=== PATIENT | male | born 1965 | race Caucasian/White ===

== ENCOUNTER 2021-08-24 11:09 | Emergency (ER) | payer OTHER ==
[~2021-08-24] VITALS: Ht 172.7 cm; Wt 83.7 kg
[2021-08-24 11:18] VITALS: BP 168/122
[2021-08-24] MEDS ORDERED: CEPH500T PO (12:28)
[2021-08-24] MEDS ORDERED: TRAM50TA3 PO (12:28)
--- NOTE | 2021-08-24 12:28 | ED Upper Extremity ---
General Chief Complaint: Foreign Body Stated Complaint: RT FINGER FOREIGN OBJECT Nursing Triage Note: Patient c/o having a piece of wood under fingernail to Rt. middle finger. Pt. states this happened last night. Pt. states he was able to get some of the wood out, but states he can not get it all. Pt. states his tetanus is greater than 5 yrs. Patient's Rt. middle finger is swollen with no active drainage. Source: patient Exam Limitations: no limitations History of Present Illness Date Seen by Provider: Aug 24, 2021 Time Seen by Provider: 11:45 Initial Comments Patient is a 56-year-old right-handed male who presents with with sliver underneath his right finger nail with inflammation of his fingertip. Symptoms began yesterday after initial injury. Patient was able to remove part of the sliver. No other symptoms or complaints. Onset: yesterday Pain/Injury Location: right 3rd finger Method of Injury: other Modifying Factors: Improves With Other Allergies and Home Medications Patient Home Medication List Home Medication List Reviewed: Yes Review of Systems Constitutional: no symptoms reported, see HPI Musculoskeletal: see HPI Past Mxtxcqg-Apqwnc-Jjucbp Hx Immunizations Up To Date Influenza Vaccine Up-to-Date: No; Not Current Physical Exam Vital Signs Vital Signs - First Documented 08/24/21 11:18 Temp 36.7 Pulse 106 Resp 18 B/P (MAP) 168/122 (137) Capillary Refill : Height, Weight, BMI Height: '" Weight: lbs. oz. kg; 28.00 BMI Method: General Appearance: no apparent distress Skin: other (Visible splinter under right middle finger nailbed with inflammation and swelling of distal finger. No obvious cellulitis or purulent drainage) Procedures/Interventions I&D : I & D Procedure: betadine prep, sterile drapes applied Progress Right middle finger prepped with Betadine and injected with 1 mL of 1% lidocaine over lateral recess of right middle finger nailbed. Following which one quarter of the lateral nail was removed from the nailbed. The remaining wood splinter was identified and removed intact. The wound was then washed and bandaged. First dose of antibiotics was given. Explicit wound care, return precautions reviewed in detail. Patient verbalizes understanding agreement discharge instructions prior to departure. Tetanus updated. Progress/Results/Core Measures Results/Orders Vital Signs/I&O 08/24/21 11:18 Temp 36.7 Pulse 106 Resp 18 B/P (MAP) 168/122 (137) Blood Pressure Mean: 137 Departure Communication (Admissions) Successful removal of sliver from under right middle finger nailbed. Antibiotics given, tetanus updated. Wound care instructions reviewed. Impression Primary Impression: Foreign body of right middle finger Disposition: HOME, SELF-CARE Condition: Stable Departure-Patient Inst. Decision time for Depature: 12:27 Referrals: NO,LOCAL PHYSICIAN (PCP/Family) Primary Care Physician Patient Instructions: Foreign Body in Skin (DC) Add. Discharge Instructions: Please keep wound clean covered and dry. Take antibiotics as directed. Take ibuprofen for pain and tramadol as needed for additional relief. Follow-up with your PCP in 2 to 3 days for wound reevaluation. Return to the ED if signs of infection. All discharge instructions reviewed with patient and/or family. Voiced understanding. Scripts Tramadol HCl (Tramadol HCl) 50 Mg Tablet 50 MG PO QID, #12 TAB Prov: JAYJAY WILSON DO 08/24/21 Cephalexin (Cephalexin) 500 Mg Tablet 500 MG PO QID, #28 TAB Prov: JAYJAY WILSON DO 08/24/21 JAYJAY WILSON DO Aug 24, 2021 12:28
[2021-08-24] MEDS ORDERED: TETANUS,DIPTH,PERTUSS P/F (BOOSTRIX) 0.5 ML VIAL IM ONE (12:30)
[2021-08-24] MEDS ORDERED: CEPHALEXIN 250 MG (KEFLEX) CAP PO ONE (12:30)
== END 2021-08-24 12:57 | disposition home or self-care (01) ==
LOC: ER FS 11:13
DX: S60.452A Superficial foreign body of right middle finger, initial encounter (principal); W45.8XXA Other foreign body or object entering through skin, initial encounter
CPT/HCPCS: 90715; 99284

== ENCOUNTER 2022-07-17 14:58 | Emergency (ER) | payer OTHER ==
[~2022-07-17 14:58] MED LIST: CEPH500T PO; TRAM50TA3 PO
[2022-07-17] MEDS ORDERED: hydrALAZINE (APESOLINE) 20 MG/ML VIAL IV STA (15:12)
--- NOTE | 2022-07-17 15:14 | ED General ---
General Chief Complaint: Cardiac/General Problems Stated Complaint: ELEV BP Nursing Triage Note: Patient reports his blood pressure has been elevated for 1-2 weeks. He states he went to walk in care today and was referred to the ED for his high blood pressure. Source of Information: Patient History of Present Illness Date Seen by Provider: Jul 17, 2022 Time Seen by Provider: 15:02 Initial Comments 57-year-old male presenting with complaints of elevated blood pressure over the last few weeks. He states he has not been having any headaches, blurred vision, nausea, chest pain, vomiting, numbness or weakness in his arms or legs. He had just randomly checked his blood pressure and a store a few weeks ago and it was elevated. He checked it again yesterday and his blood pressure was even more elevated. He went to urgent care to see if there is anything more going on and what he might be able to do about. Because his blood pressure was 230/130 the advised him to come to the emergency department. They did perform an electrocardiogram which did not show any acute ST elevation. He denies taking any chronic medications and states he does not want to be on medicine if he can avoid it. He does not have a primary care provider. Timing/Duration: Getting Worse (Over the last few weeks) Severity: Severe Associated Systoms: No Chest Pain, No Cough, No Diaphoresis, No Fever/Chills, No Headaches, No Loss of Appetite, No Malaise, No Nausea/Vomiting, No Rash, No Seizure, No Shortness of Air, No Syncope, No Weakness Allergies and Home Medications Allergies Coded Allergies: No Known Drug Allergies (Unverified , 08/24/21) Patient Home Medication List Home Medication List Reviewed: Yes Cephalexin (Cephalexin) 500 Mg Tablet, 500 MG PO QID Prescribed by: JAYJAY WILSON on 08/24/21 1228 Lisinopril/Hydrochlorothiazide (Lisinopril-Hctz 10-12.5 mg Tab) 10 Mg-12.5 Mg Tablet, 1 EACH PO DAILY Prescribed by: CAMERON WANG on 07/17/22 1603 Tramadol HCl (Tramadol HCl) 50 Mg Tablet, 50 MG PO QID Prescribed by: JAYJAY WILSON on 08/24/21 1229 Review of Systems Review of Systems Constitutional: No chills, No dizziness, No fever EENTM: no symptoms reported Respiratory: no symptoms reported Cardiovascular: no symptoms reported Gastrointestinal: no symptoms reported Genitourinary: no symptoms reported Musculoskeletal: no symptoms reported Skin: no symptoms reported Psychiatric/Neurological: No Symptoms Reported Hematologic/Lymphatic: No Symptoms Reported Past Nadbstz-Xqzrab-Qjqsei Hx Patient Social History Tobacco Use?: No Substance use?: No Alcohol Use?: No Pt feels they are or have been: No Past Medical History Surgery/Hospitalization HX: Hypertension Physical Exam Vital Signs Vital Signs - First Documented 07/17/22 15:05 Temp 36.5 Pulse 77 Resp 16 B/P (MAP) 235/129 (164) Pulse Ox 98 O2 Delivery Room Air Capillary Refill : Less Than 3 Seconds Height, Weight, BMI Height: '" Weight: lbs. oz. kg; 28.00 BMI Method: General Appearance: No Apparent Distress, WD/WN HEENT: PERRL/EOMI, Pharynx Normal, Moist Mucous Membranes Neck: Full Range of Motion, Normal Inspection, Non Tender, Supple Respiratory: Chest Non Tender, Lungs Clear, Normal Breath Sounds Cardiovascular: Regular Rate, Rhythm, Normal Peripheral Pulses Gastrointestinal: Normal Bowel Sounds, No Pulsatile Mass, Non Tender, Soft Rectal: Deferred Extremity: Normal Capillary Refill, Normal Inspection, No Pedal Edema Neurologic/Psychiatric: Alert, Oriented x3, component assembler II-XII Norm as Tested Skin: Normal Color, Warm/Dry Progress/Results/Core Measures Suspected Sepsis SIRS Temperature: Pulse: 77 Respiratory Rate: 16 Laboratory Tests 07/17/22 15:15: White Blood Count 8.7 Blood Pressure 235 /129 Mean: 164 Laboratory Tests 07/17/22 15:15: Creatinine 0.97, INR Comment 1.0, Platelet Count 270, Total Bilirubin 0.5 Results/Orders Lab Results Laboratory Tests Test 07/17/22 15:15 07/17/22 15:20 Range/Units White Blood Count 8.7 4.3-11.0 10^3/uL Red Blood Count 5.20 4.30-5.52 10^6/uL Hemoglobin 15.4 13.3-17.7 g/dL Hematocrit 45 40-54 % Mean Corpuscular Volume 86 80-99 fL Mean Corpuscular Hemoglobin 30 25-34 pg Mean Corpuscular Hemoglobin Concent 34 32-36 g/dL Red Cell Distribution Width 13.0 10.0-14.5 % Platelet Count 270 130-400 10^3/uL Mean Platelet Volume 10.0 9.0-12.2 fL Immature Granulocyte % (Auto) 0 % Neutrophils (%) (Auto) 60 42-75 % Lymphocytes (%) (Auto) 22 12-44 % Monocytes (%) (Auto) 11 0-12 % Eosinophils (%) (Auto) 6 0-10 % Basophils (%) (Auto) 2 0-10 % Neutrophils # (Auto) 5.2 1.8-7.8 10^3/uL Lymphocytes # (Auto) 1.9 1.0-4.0 10^3/uL Monocytes # (Auto) 0.9 0.0-1.0 10^3/uL Eosinophils # (Auto) 0.5 H 0.0-0.3 10^3/uL Basophils # (Auto) 0.2 H 0.0-0.1 10^3/uL Immature Granulocyte # (Auto) 0.0 0.0-0.1 10^3/uL Prothrombin Time 13.3 12.2-14.7 SEC INR Comment 1.0 0.8-1.4 Activated Partial Thromboplast Time 33 24-35 SEC Sodium Level 139 135-145 MMOL/L Potassium Level 3.9 3.6-5.0 MMOL/L Chloride Level 101 98-107 MMOL/L Carbon Dioxide Level 26 21-32 MMOL/L Anion Gap 12 5-14 MMOL/L Blood Urea Nitrogen 10 7-18 MG/DL Creatinine 0.97 0.60-1.30 MG/DL Estimat Glomerular Filtration Rate 90 BUN/Creatinine Ratio 10 Glucose Level 97 70-105 MG/DL Calcium Level 9.0 8.5-10.1 MG/DL Corrected Calcium 8.8 8.5-10.1 MG/DL Magnesium Level 2.0 1.6-2.4 MG/DL Total Bilirubin 0.5 0.1-1.0 MG/DL Aspartate Amino Transf (AST/SGOT) 14 5-34 U/L Alanine Aminotransferase (ALT/SGPT) 13 0-55 U/L Alkaline Phosphatase 64 40-136 U/L Troponin I < 0.30 <0.30 NG/ML Pro-B-Type Natriuretic Peptide 113.8 <125.0 PG/ML Total Protein 8.0 6.4-8.2 GM/DL Albumin 4.3 3.2-4.5 GM/DL Urine Color YELLOW Urine Clarity CLEAR Urine pH 6.5 5-9 Urine Specific [place] 1.020 1.016-1.022 Urine Protein NEGATIVE NEGATIVE Urine Glucose (UA) NEGATIVE NEGATIVE Urine Ketones NEGATIVE NEGATIVE Urine Nitrite NEGATIVE NEGATIVE Urine Bilirubin NEGATIVE NEGATIVE Urine Urobilinogen 0.2 < = 1.0 MG/DL Urine Leukocyte Esterase NEGATIVE NEGATIVE Urine RBC (Auto) NEGATIVE NEGATIVE Urine RBC NONE /HPF Urine WBC 5-10 H /HPF Urine Squamous Epithelial Cells NONE /HPF Urine Crystals NONE /LPF Urine Bacteria NEGATIVE /HPF Urine Casts NONE /LPF Urine Mucus SMALL H /LPF Urine Culture Indicated NO My Orders Orders - CAMERON WANG MD Cbc With Automated Diff (07/17/22 15:12) Magnesium (07/17/22 15:12) Chest 1 View Ap/Pa Only (07/17/22 15:12) Comprehensive Metabolic Panel (07/17/22 15:12) Protime With Inr (07/17/22 15:12) Partial Thromboplastin Time (07/17/22 15:12) Monitor-Rhythm Ecg Trace Only (07/17/22 15:12) Ed Iv/Invasive Line Start (07/17/22 15:12) Troponin I Fs (07/17/22 15:12) Probnp Fs (07/17/22 15:12) Hydralazine Injection (Apresoline Inject (07/17/22 15:12) Ua Culture If Indicated (07/17/22 15:12) Vital Signs/I&O 07/17/22 07/17/22 15:05 16:19 Temp 36.5 Pulse 77 72 Resp 16 16 B/P (MAP) 235/129 (164) 196/125 Pulse Ox 98 97 O2 Delivery Room Air Room Air Capillary Refill : Less Than 3 Seconds Blood Pressure Mean: 164 Progress Note #1: Progress Note Potential diagnosis of hypertension, hypertensive urgency, hypertensive emergency, renal failure, brain mass, stress reaction. Although it is reassuring that he is not having symptoms of elevated blood pressure. will check labs to look at complete blood count, comprehensive metabolic profile, cardiac enzymes and chest x-ray to look for signs of fusion, failure, infiltrate. Administer hydralazine 10 mg IV x1 to try and help lower his blood pressure by 10 to 20% Progress Note #2: Progress Note Labs appear stable without acute significant abnormality. There is no acute elevation of his white blood cell count to indicate an infection. He was not anemic. His comprehensive metabolic profile was not showing acute significant normality to account for his high blood pressure. His cardiac enzymes are negative. His blood pressure did improve with the hydralazine any had dropped from 230 systolic to 197 systolic. Again he continued to deny any acute symptoms or feeling bad. His 1 view chest x-ray did not show an acute process on my personal interpretation and review. Will update patient and plan on dis charging him on lisinopril/hydrochlorothiazide 10/12.5 mg. This is based off recommendations from reviewing medical online reference [email or web address]. Progress Note #3: Progress Note Radiologist did not appreciate any acute process on his 1 view chest x-ray either. His blood pressure had improved and he continues to deny any symptoms. We will discharge on lisinopril/hydrochlorothiazide 10 mg / 12.5 mg. Encouraged to establish care with primary care provider and they will need to monitor his blood pressure and may need to do additional testing. Given information about the DASH diet to try and help with his blood pressure as well. Diagnostic Imaging Diagonstic Imaging: Xray Plain Films/CT/US/NM/MRI: chest Comments NAME: [facility]IS[facility] REC#: [id number] PT STATUS: REG ER : 1965 PHYSICIAN: CAMERON WANG MD ADMIT DATE: 07/17/22/ER FS Draft Date of Exam:07/17/22 CHEST 1 VIEW AP/PA ONLY INDICATION: Hypertension x2 weeks. TECHNIQUE: Single view chest 3:20 PM. CORRELATION STUDY: None FINDINGS: The heart size, mediastinal configuration and pulmonary vascularity are within normal limits. The lungs are clear with no consolidating infiltrate. Minimal discoid atelectasis left costophrenic angle. There is no significant effusion or pneumothorax. IMPRESSION: 1. Negative appearing single view chest. Dictated on workstation # [id number] Dict: 07/17/22 1549 Trans: 07/17/22 1550 DO [id number] Interpreted by: RUDYD FLORES DO Electronically signed by: Reviewed: Reviewed by Me Departure Impression Primary Impression: Hypertension Qualified Codes: I10 - Essential (primary) hypertension Disposition: 01 HOME, SELF-CARE Condition: Stable Departure-Patient Inst. Decision time for Depature: 16:01 Referrals: NO,LOCAL PHYSICIAN (PCP) Primary Care Physician [facility] [place] Patient Instructions: High Blood Pressure ED, DASH Diet, Medicines for High Blood Pressure Add. Discharge Instructions: Start taking the Lisinopril/Hydrochlorothiazide 10/12.5 mg pill once a day to help treat for high blood pressure. Call [facility] clinic at [phone] to get set up with a provider for medical care and follow up to help control your blood pressure. All discharge instructions reviewed with patient and/or family. Voiced understanding. Scripts Lisinopril/Hydrochlorothiazide (Lisinopril-Hctz 10-12.5 mg Tab) 10 Mg-12.5 Mg Tablet 1 EACH PO DAILY for hypertension for 30 Days, #30 TAB 0 Refills Prov: CAMERON WANG MD 07/17/22 CAMERON WANG MD Jul 17, 2022 15:14
[2022-07-17 15:23] LABS: BASOPHILS # (AUTO) 0.2 10^3/uL (0.0-0.1); BASOPHILS % (AUTO) 2 % (0-10); EOSINOPHILS # (AUTO) 0.5 10^3/uL (0.0-0.3); EOSINOPHILS % (AUTO) 6 % (0-10); HEMATOCRIT 45 % (40-54); HEMOGLOBIN 15.4 g/dL (13.3-17.7); LYMPHOCYTES # (AUTO) 1.9 10^3/uL (1.0-4.0); LYMPHOCYTES % (AUTO) 22 % (12-44); MEAN CORPUSCULAR HEMOGLOBIN 30 pg (25-34); MEAN CORPUSCULAR HGB CONC 34 g/dL (32-36); MEAN CORPUSCULAR VOLUME 86 fL (80-99); MONOCYTES # (AUTO) 0.9 10^3/uL (0.0-1.0); MONOCYTES % (AUTO) 11 % (0-12); NEUTROPHILS # (AUTO) 5.2 10^3/uL (1.8-7.8); NEUTROPHILS % (AUTO) 60 % (42-75); PLATELET COUNT 270 10^3/uL (130-400); WHITE BLOOD COUNT 8.7 10^3/uL (4.3-11.0)
[2022-07-17 15:38] LABS: PROTHROMBIN TIME PATIENT 13.3 SEC (12.2-14.7)
[2022-07-17 15:41] LABS: BILIRUBIN,URINE NEGATIVE (NEGATIVE); CLARITY,URINE CLEAR; COLOR,URINE YELLOW; GLUCOSE, URINE (UA) NEGATIVE (NEGATIVE); KETONES,URINE NEGATIVE (NEGATIVE); LEUKOCYTE ESTERASE ,URINE NEGATIVE (NEGATIVE); NITRITE,URINE NEGATIVE (NEGATIVE); PH,URINE 6.5 (5-9); PROTEIN,URINE NEGATIVE (NEGATIVE)
--- NOTE | 2022-07-17 15:50 | Diagnostic Imaging Report ---
INDICATION: Hypertension x2 weeks. TECHNIQUE: Single view chest 3:20 PM. CORRELATION STUDY: None FINDINGS: The heart size, mediastinal configuration and pulmonary vascularity are within normal limits. The lungs are clear with no consolidating infiltrate. Minimal discoid atelectasis left costophrenic angle. There is no significant effusion or pneumothorax. IMPRESSION: 1. Negative appearing single view chest. Dictated by: Dictated on workstation # [id number]
[2022-07-17 15:54] LABS: BACTERIA,URINE NEGATIVE /HPF
[2022-07-17 15:58] LABS: POTASSIUM 3.9 MMOL/L (3.6-5.0)
[2022-07-17 15:59] LABS: ALBUMIN 4.3 GM/DL (3.2-4.5); BILIRUBIN,TOTAL 0.5 MG/DL (0.1-1.0); CREATININE SERUM 0.97 MG/DL (0.60-1.30)
[2022-07-17] MEDS ORDERED: LISI1TAB44 PO (16:03)
[2022-07-17 16:19] VITALS: BP 196/125
== END 2022-07-17 16:19 | disposition home or self-care (01) ==
LOC: EDUNIT# 14:58 → ER FS 14:59
DX: I10 Essential (primary) hypertension (principal)
CPT/HCPCS: 36415; 71045; 80053; 81000; 83735; 83880; 84484; 85025; 85610; 85730; 93041

== ENCOUNTER 2022-10-13 06:37 | Emergency (ER) | payer OTHER ==
[~2022-10-13] VITALS: Ht 172 cm; Wt 87.9 kg
[~2022-10-13 06:37] MED LIST changes: +LISI1TAB44 PO
--- NOTE | 2022-10-13 06:49 | ED Abdominal Pain ---
General Chief Complaint: Abdominal/GI Problems Stated Complaint: ABD PAIN,VOMITING,COLD SWEATS History of Present Illness Date Seen by Provider: Oct 13, 2022 Time Seen by Provider: 06:47 Initial Comments 57-year-old male with PMH of HTN and left sided inguinal hernia repair, is here with complaints of right lower quadrant pain which began around 5:45 AM today morning. Patient had a sandwich in the morning which he vomited. Pain level is 6-7/10, and localized to the right lower quadrant. Patient complains of associated chills. Denies fever, diarrhea, constipation, chest pain. (ROSAS YOUNGBLOOD MD) Allergies and Home Medications Allergies Coded Allergies: No Known Drug Allergies (Unverified , 08/24/21) Patient Home Medication List Home Medication List Reviewed: Yes (ROSAS YOUNGBLOOD MD) Cefdinir (Cefdinir) 300 Mg Capsule, 300 MG PO BID Prescribed by: CESAR HAYWOOD on 10/13/22 0831 Cephalexin (Cephalexin) 500 Mg Tablet, 500 MG PO QID Prescribed by: JAYJAY WILSON on 08/24/21 1228 Ibuprofen (Ibuprofen) 600 Mg Tablet, 600 MG PO Q6H PRN for PAIN-MILD Prescribed by: CESAR HAYWOOD on 10/13/22 0831 Lisinopril/Hydrochlorothiazide (Lisinopril-Hctz 10-12.5 mg Tab) 10 Mg-12.5 Mg Tablet, 1 EACH PO DAILY Prescribed by: CAMERON WANG on 07/17/22 1603 Ondansetron (Ondansetron Odt) 4 Mg Tab.rapdis, 4 MG SL Q6H PRN for NAUSEA/VOMITING Prescribed by: CESAR HAYWOOD on 10/13/22 0831 Oxycodone HCl (Oxycodone HCl) 5 Mg Tablet, 5 MG PO Q6H PRN for PAIN-MODERATE TO SEVERE Prescribed by: CESAR HAYWOOD on 10/13/22 0832 Tamsulosin HCl (Flomax) 0.4 Mg Cap, 0.4 MG PO DAILY Prescribed by: CESAR HAYWOOD on 10/13/22 0831 Tramadol HCl (Tramadol HCl) 50 Mg Tablet, 50 MG PO QID Prescribed by: JAYJAY WILSON on 08/24/21 1229 Review of Systems Review of Systems Constitutional: chills EENTM: No Symptoms Reported Respiratory: No Symptoms Reported Cardiovascular: No Symptoms Reported Gastrointestinal: Abdominal Pain, Nausea, Vomiting Genitourinary: No Symptoms Reported Musculoskeletal: no symptoms reported Skin: no symptoms reported Psychiatric/Neurological: No Symptoms Reported Endocrine: No Symptoms Reported Hematologic/Lymphatic: No Symptoms Reported (ROSAS YOUNGBLOOD MD) Past Aykxzfc-Veimrq-Xalmws Hx Past Medical History Surgery/Hospitalization HX: Hypertension (ROSAS YOUNGBLOOD MD) Physical Exam Vital Signs Vital Signs - First Documented 10/13/22 06:46 Temp 36.3 Pulse 83 Resp 22 B/P (MAP) 152/106 (121) Pulse Ox 100 O2 Delivery Room Air (CESAR HAYWOOD MD) Vital Signs Capillary Refill : (ROSAS YOUNGBLOOD MD) Height/Weight/BMI Height: '" Weight: lbs. oz. kg; 28.00 BMI Method: General Appearance: WD/WN, no apparent distress HEENT: PERRL/EOMI Neck: full range of motion Respiratory: chest non-tender, lungs clear, normal breath sounds Cardiovascular: regular rate, rhythm Gastrointestinal: normal bowel sounds, soft, no organomegaly, tenderness (Mild tenderness in the right lower quadrant ) Extremities: normal range of motion Back: normal inspection, no CVA tenderness Neurologic/Psychiatric: alert, normal mood/affect, oriented x 3 Skin: normal color (ROSAS YOUNGBLOOD MD) Progress/Results/Core Measures Results/Orders Lab Results Laboratory Tests Test 10/13/22 06:50 10/13/22 07:55 Range/Units White Blood Count 11.3 H 4.3-11.0 10^3/uL Red Blood Count 4.60 4.30-5.52 10^6/uL Hemoglobin 13.7 13.3-17.7 g/dL Hematocrit 40 40-54 % Mean Corpuscular Volume 87 80-99 fL Mean Corpuscular Hemoglobin 30 25-34 pg Mean Corpuscular Hemoglobin Concent 34 32-36 g/dL Red Cell Distribution Width 13.2 10.0-14.5 % Platelet Count 250 130-400 10^3/uL Mean Platelet Volume 10.5 9.0-12.2 fL Immature Granulocyte % (Auto) 0 % Neutrophils (%) (Auto) 73 42-75 % Lymphocytes (%) (Auto) 14 12-44 % Monocytes (%) (Auto) 10 0-12 % Eosinophils (%) (Auto) 2 0-10 % Basophils (%) (Auto) 1 0-10 % Neutrophils # (Auto) 8.3 H 1.8-7.8 10^3/uL Lymphocytes # (Auto) 1.6 1.0-4.0 10^3/uL Monocytes # (Auto) 1.1 H 0.0-1.0 10^3/uL Eosinophils # (Auto) 0.2 0.0-0.3 10^3/uL Basophils # (Auto) 0.1 0.0-0.1 10^3/uL Immature Granulocyte # (Auto) 0.0 0.0-0.1 10^3/uL Sodium Level 138 135-145 MMOL/L Potassium Level 4.5 3.6-5.0 MMOL/L Chloride Level 104 98-107 MMOL/L Carbon Dioxide Level 23 21-32 MMOL/L Anion Gap 11 5-14 MMOL/L Blood Urea Nitrogen 19 H 7-18 MG/DL Creatinine 1.31 H 0.60-1.30 MG/DL Estimat Glomerular Filtration Rate 63 BUN/Creatinine Ratio 15 Glucose Level 222 H 70-105 MG/DL Calcium Level 8.7 8.5-10.1 MG/DL Corrected Calcium 8.7 8.5-10.1 MG/DL Magnesium Level 1.9 1.6-2.4 MG/DL Total Bilirubin 0.6 0.1-1.0 MG/DL Aspartate Amino Transf (AST/SGOT) 14 5-34 U/L Alanine Aminotransferase (ALT/SGPT) 21 0-55 U/L Alkaline Phosphatase 51 40-136 U/L Total Protein 6.9 6.4-8.2 GM/DL Albumin 4.0 3.2-4.5 GM/DL Lipase 25 8-78 U/L Urine Color YELLOW Urine Clarity CLOUDY Urine pH 7.0 5-9 Urine Specific [place] 1.010 L 1.016-1.022 Urine Protein 1+ H NEGATIVE Urine Glucose (UA) NEGATIVE NEGATIVE Urine Ketones TRACE H NEGATIVE Urine Nitrite NEGATIVE NEGATIVE Urine Bilirubin NEGATIVE NEGATIVE Urine Urobilinogen 1.0 < = 1.0 MG/DL Urine Leukocyte Esterase NEGATIVE NEGATIVE Urine RBC (Auto) 3+ H NEGATIVE Urine RBC TNTC H /HPF Urine WBC NONE /HPF Urine Squamous Epithelial Cells NONE /HPF Urine Crystals NONE /LPF Urine Bacteria FEW H /HPF Urine Casts PRESENT /LPF Urine Hyaline Casts 2-5 H /LPF Urine Mucus LARGE H /LPF Urine Culture Indicated NO Urine Opiates Screen NEGATIVE NEGATIVE Urine Oxycodone Screen NEGATIVE NEGATIVE Urine Methadone Screen NEGATIVE NEGATIVE Urine Propoxyphene Screen NEGATIVE NEGATIVE Urine Barbiturates Screen NEGATIVE NEGATIVE Ur Tricyclic Antidepressants Screen NEGATIVE NEGATIVE Urine Phencyclidine Screen NEGATIVE NEGATIVE Urine Amphetamines Screen NEGATIVE NEGATIVE Urine Methamphetamines Screen NEGATIVE NEGATIVE Urine Benzodiazepines Screen NEGATIVE NEGATIVE Urine Cocaine Screen NEGATIVE NEGATIVE Urine Cannabinoids Screen NEGATIVE NEGATIVE (CESAR HAYWOOD MD) My Orders Orders - CESAR HAYWOOD MD Iohexol Injection (Omnipaque 350 Mg/Ml 1 (10/13/22 07:15) Received Contrast (Hold Metformin- Contr (10/13/22 07:15) Ns (Ivpb) (Sodium Chloride 0.9% Ivpb Bag (10/13/22 07:15) Ondansetron Injection (Zofran Injectio (10/13/22 08:15) Ns Iv 1000 Ml (Sodium Chloride 0.9%) (10/13/22 08:09) Morphine Injection (Morphine Injection (10/13/22 08:21) Ceftriaxone Iv/Im (Rocephin Iv/Im) (10/13/22 08:21) (CESAR HAYWOOD MD) Medications Given in ED Current Medications Medications Dose Ordered Sig/Jackie Route Start Time Stop Time Status Last Admin Dose Admin Iohexol 100 ml ONCE ONCE IV 10/13/22 07:15 10/13/22 07:18 DC 10/13/22 07:34 80 ML Ketorolac Tromethamine 15 mg ONCE ONCE IVP 10/13/22 07:00 10/13/22 07:01 DC 10/13/22 07:02 15 MG Ondansetron HCl 4 mg ONCE ONCE IVP 10/13/22 08:15 10/13/22 08:16 DC 10/13/22 08:17 4 MG Sodium Chloride 100 ml ONCE ONCE IV 10/13/22 07:15 10/13/22 07:18 DC 10/13/22 07:34 80 ML (CESAR HAYWOOD MD) Vital Signs/I&O 10/13/22 06:46 Temp 36.3 Pulse 83 Resp 22 B/P (MAP) 152/106 (121) Pulse Ox 100 O2 Delivery Room Air (CESAR HAYWOOD MD) Progress Progress Note : Progress Note 1. RLQ PAIN: - CT ABD & PELVIS with contrast -Labs ordered - UA/ UDS -Toradol IV given for pain - Will sign out to day physician for follow-up of labs and imaging (ROSAS YOUNGBLOOD MD) Progress Note : Progress Note Received the patient in signout pending full lab work and CT imaging. His white blood cell count is normal, creatinine slightly elevated at 1.3, urinalysis with blood in it and some bacteria. CT abdomen pelvis on my interpretation with an obstructing kidney stone on the right with hydronephrosis. There is a little bit of stranding around the kidney as well. I did a repeat exam, he is not exhibiting any abdominal tenderness currently, but does have significant right- sided CVA tenderness. He was given IV morphine, normal saline, Zofran, and ceftriaxone. I will give him a prescription for pain medication as well as antibiotics and nausea medicines to give him time to follow-up with urology as an outpatient. I believe he is otherwise stable for discharge with outpatient follow-up. He was sent home with strict return precautions. (CESAR HAYWOOD MD) Diagnostic Imaging Diagonstic Imaging: CT (abd/pelvis) Comments NAME: LARISSA IBRAHIM [facility] REC#: [id number] PT STATUS: REG ER : 1965 PHYSICIAN: ROSAS YOUNGBLOOD MD ADMIT DATE: 10/13/22/ER FS Draft Date of Exam:10/13/22 CT ABDOMEN/PELVIS W PROCEDURE: CT abdomen and pelvis with contrast. TECHNIQUE: Multiple contiguous axial images were obtained through the abdomen and pelvis after administration of intravenous contrast. Auto Exposure Controls were utilized during the CT exam to meet ALARA standards for radiation dose reduction. All CT scans use one or more of the following dose optimizing techniques: automated exposure control, MA and/or KvP adjustment based on patient size and exam type or iterative reconstruction. INDICATION: Right lower quadrant pain accompanied by vomiting. COMPARISON: No priors. A 5 mm calculus is in the proximal right ureter at the level of the L3 vertebral body level. There is mild right-sided perinephric stranding and edema and very mild right hydronephrosis. No urinoma or other acute fluid collection. No additional radiodense urinary tract calculi are found. There is no appendicitis or diverticulitis. There is no ileus or bowel obstruction. Multiple pelvic phleboliths are noted incidentally. The bladder is poorly distended limiting its evaluation. The lung bases clear. The liver, gallbladder, bile ducts, spleen, adrenals, pancreas unremarkable with a few tiny hepatic cysts noted incidentally. IMPRESSION: A 5 mm proximal right ureteral stone results in very mild upstream right hydronephrosis. No additional urinary tract pathology found. No other significant finding. Dictated on workstation # [id number] Dict: 10/13/22 0749 Trans: 10/13/22 0825 [facility] [id number] Interpreted by: ELISHA ALFREDO Electronically signed by: (CESAR HAYWOOD MD) Departure Impression Primary Impression: Ureterolithiasis Disposition: 01 HOME, SELF-CARE Condition: Stable Departure-Patient Inst. Decision time for Depature: 08:45 (CESAR HAYWOOD MD) Referrals: NO,LOCAL PHYSICIAN (PCP/Family) Primary Care Physician Patient Instructions: Kidney Stone, Adult ED Add. Discharge Instructions: It does appear like you have a rather large kidney stone on the right side. These can sometimes take weeks to pass. Please follow-up with the urologist of your choosing as soon as possible. You can either Google one that you would like to reach out to, or you can also just reach out to [facility] at [phone]. Another option is [facility] at [phone]. Pain medication as well as nausea medicines and antibiotics were sent to your pharmacy. Scripts Cefdinir (Cefdinir) 300 Mg Capsule 300 MG PO BID for 10 Days, #20 CAP 0 Refills Prov: CESAR HAYWOOD MD 10/13/22 Tamsulosin HCl (Flomax) 0.4 Mg Cap 0.4 MG PO DAILY for 30 Days, #30 CAP Prov: CESAR HAYWOOD MD 10/13/22 Ibuprofen (Ibuprofen) 600 Mg Tablet 600 MG PO Q6H PRN for PAIN-MILD for 5 Days, #20 TAB Prov: CESAR HAYWOOD MD 10/13/22 Ondansetron (Ondansetron Odt) 4 Mg Tab.rapdis 4 MG SL Q6H PRN for NAUSEA/VOMITING for 5 Days, #20 TAB Prov: CESAR HAYWOOD MD 10/13/22 Oxycodone HCl (Oxycodone HCl) 5 Mg Tablet 5 MG PO Q6H PRN for PAIN-MODERATE TO SEVERE for 4 Days, #16 TAB Prov: CESAR HAYWOOD MD 10/13/22 Work/School Note: Work Release Form Date Seen in the Emergency Department: Oct 13, 2022 Return to Work: Oct 15, 2022 Restrictions: No Restrictions ROSAS YOUNGBLOOD MD Oct 13, 2022 06:49 CESAR HAYWOOD MD Oct 13, 2022 08:30
[2022-10-13 06:58] LABS: BASOPHILS # (AUTO) 0.1 10^3/uL (0.0-0.1); BASOPHILS % (AUTO) 1 % (0-10); EOSINOPHILS # (AUTO) 0.2 10^3/uL (0.0-0.3); EOSINOPHILS % (AUTO) 2 % (0-10); HEMATOCRIT 40 % (40-54); HEMOGLOBIN 13.7 g/dL (13.3-17.7); LYMPHOCYTES # (AUTO) 1.6 10^3/uL (1.0-4.0); LYMPHOCYTES % (AUTO) 14 % (12-44); MEAN CORPUSCULAR HEMOGLOBIN 30 pg (25-34); MEAN CORPUSCULAR HGB CONC 34 g/dL (32-36); MEAN CORPUSCULAR VOLUME 87 fL (80-99); MEAN PLATELET VOLUME 10.5 fL (9.0-12.2); MONOCYTES # (AUTO) 1.1 10^3/uL (0.0-1.0); MONOCYTES % (AUTO) 10 % (0-12); NEUTROPHILS # (AUTO) 8.3 10^3/uL (1.8-7.8); NEUTROPHILS % (AUTO) 73 % (42-75); PLATELET COUNT 250 10^3/uL (130-400); WHITE BLOOD COUNT 11.3 10^3/uL (4.3-11.0)
[2022-10-13] MEDS ORDERED: KETOROLAC 15 MG/ML VIAL IVP ONE (07:00)
[2022-10-13 07:11] LABS: BILIRUBIN,TOTAL 0.6 MG/DL (0.1-1.0); CALCIUM 8.7 MG/DL (8.5-10.1); CREATININE SERUM 1.31 MG/DL (0.60-1.30); MAGNESIUM 1.9 MG/DL (1.6-2.4); POTASSIUM 4.5 MMOL/L (3.6-5.0); TOTAL PROTEIN 6.9 GM/DL (6.4-8.2)
[2022-10-13] MEDS ORDERED: HOLD METFORMIN - RECEIVED CONTRAST 20 ML VIAL IV SCH (07:15)
[2022-10-13] MEDS ORDERED: NS 100 ML (IVPB) BAG IV ONE (07:15)
[2022-10-13] MEDS ORDERED: IOHEXOL 350 MG/ML 100 ML (OMNIPAQUE 350) VIAL IV ONE (07:15)
[2022-10-13 08:00] LABS: BILIRUBIN,URINE NEGATIVE (NEGATIVE); COLOR,URINE YELLOW; GLUCOSE, URINE (UA) NEGATIVE (NEGATIVE); KETONES,URINE TRACE (NEGATIVE); LEUKOCYTE ESTERASE ,URINE NEGATIVE (NEGATIVE); NITRITE,URINE NEGATIVE (NEGATIVE); PROTEIN,URINE 1+ (NEGATIVE)
[2022-10-13 08:04] LABS: CLARITY,URINE CLOUDY
[2022-10-13 08:05] LABS: BACTERIA,URINE FEW /HPF; RBC,URINE TNTC /HPF
[2022-10-13] MEDS ORDERED: NS IV 1000 ML 1,000 ML IV STA (08:09)
[2022-10-13 08:14] LABS: AMPHETAMINE SCREEN, URINE NEGATIVE (NEGATIVE); BARBITURATE SCREEN URINE NEGATIVE (NEGATIVE); BENZODIAZEPINES SCREEN URINE NEGATIVE (NEGATIVE); CANNABINOID SCREEN, URINE NEGATIVE (NEGATIVE); COCAINE SCREEN URINE NEGATIVE (NEGATIVE); METHADONE STAT NEGATIVE (NEGATIVE); OPIATE SCREEN URINE NEGATIVE (NEGATIVE); OXYCODONE STAT NEGATIVE (NEGATIVE); PROPOXYPHENE STAT NEGATIVE (NEGATIVE); TRICYCLIC ANTIDEPRESSANTS SCRE NEGATIVE (NEGATIVE)
[2022-10-13] MEDS ORDERED: ONDANSETRON 4 MG/2 ML (SDV) Z0FRAN IVP ONE (08:15)
[2022-10-13] MEDS ORDERED: cefTRIAXone IV/IM 1,000 MG in NS (IVPB) 50 ML IV STA (08:21)
[2022-10-13] MEDS ORDERED: morphine INJ 10 MG/ML 1ML (SYR OR VIAL) IVP STA (08:21)
--- NOTE | 2022-10-13 08:25 | Diagnostic Imaging Report ---
PROCEDURE: CT abdomen and pelvis with contrast. TECHNIQUE: Multiple contiguous axial images were obtained through the abdomen and pelvis after administration of intravenous contrast. Auto Exposure Controls were utilized during the CT exam to meet ALARA standards for radiation dose reduction. All CT scans use one or more of the following dose optimizing techniques: automated exposure control, MA and/or KvP adjustment based on patient size and exam type or iterative reconstruction. INDICATION: Right lower quadrant pain accompanied by vomiting. COMPARISON: No priors. A 5 mm calculus is in the proximal right ureter at the level of the L3 vertebral body level. There is mild right-sided perinephric stranding and edema and very mild right hydronephrosis. No urinoma or other acute fluid collection. No additional radiodense urinary tract calculi are found. There is no appendicitis or diverticulitis. There is no ileus or bowel obstruction. Multiple pelvic phleboliths are noted incidentally. The bladder is poorly distended limiting its evaluation. The lung bases clear. The liver, gallbladder, bile ducts, spleen, adrenals, pancreas unremarkable with a few tiny hepatic cysts noted incidentally. IMPRESSION: A 5 mm proximal right ureteral stone results in very mild upstream right hydronephrosis. No additional urinary tract pathology found. No other significant finding. Dictated by: Dictated on workstation # [id number]
[2022-10-13] MEDS ORDERED: CEFD300C3 PO (08:31)
[2022-10-13] MEDS ORDERED: OXYC5TAB PO (08:31)
[2022-10-13] MEDS ORDERED: ONDA4TAB11 SL (08:31)
[2022-10-13] MEDS ORDERED: TMSL.4C PO (08:31)
[2022-10-13] MEDS ORDERED: IBUP-1773 PO (08:31)
[2022-10-13 08:47] VITALS: BP 142/78
== END 2022-10-13 08:49 | disposition home or self-care (01) ==
LOC: EDUNIT# 06:37 → ER FS 06:39
DX: N13.2 Hydronephrosis with renal and ureteral calculous obstruction (principal); R94.4 Abnormal results of kidney function studies; Z28.311 Partially vaccinated for COVID-19
CPT/HCPCS: 36415; 74177; 80053; 80306; 81000; 83690; 83735; 85025

== ENCOUNTER → 2023-02-06 | Outpatient (CLI) | payer OTHER ==
[~2023-02-06] MED LIST changes: +CEFD300C3 PO; +IBUP-1773 PO; +ONDA4TAB11 SL; +OXYC5TAB PO; +TMSL.4C PO
--- NOTE | 2023-02-06 13:36 | Diagnostic Imaging Report ---
EXAMINATION: Abdomen 1 view HISTORY: Renal stone COMPARISON: None available. FINDINGS: No dilated bowel. No free air. There are no calcifications projecting over the kidneys or ureters. There are phleboliths in the pelvis. IMPRESSION: 1. No calcifications are seen projecting over the kidneys or ureters. Dictated by: Dictated on workstation # [id number]
== END ==
LOC: RAD FS 11:30
PROVIDERS: ATTEND Urology
DX: N20.0 Calculus of kidney (principal)
CPT/HCPCS: 74018

== ENCOUNTER → 2023-03-06 | Outpatient (CLI) | payer OTHER ==
--- NOTE | 2023-03-06 14:44 | Diagnostic Imaging Report ---
INDICATION: STONE COMPARISON: CT dated 10/13/2022. FINDINGS: Single supine radiographic view of the abdomen was obtained and demonstrates nondistended loops of small bowel. There is no large collection of free peritoneal air. Multiple extraosseous calcifications are noted projecting over the pelvis. There is one less calculus on the right compared to 02/06/2023 and may be on the basis of interval clearance of ureteral calculus. No unexpected radiopaque foreign bodies are seen. Bony structures show no gross acute abnormalities. IMPRESSION: 1. Nonobstructed small bowel gas pattern. 2. Probable interval clearing of right ureteral calculus. Dictated by: Dictated on workstation # [id number]
== END ==
LOC: RAD FS 12:29
PROVIDERS: ATTEND Urology
DX: Z87.442 Personal history of urinary calculi (principal)
CPT/HCPCS: 74018